=== PATIENT | female | born 1970 | race Caucasian/White ===

== ENCOUNTER → 2023-12-16 06:55 | Outpatient (CLI) | payer OTHER, SELFPAY ==
--- NOTE | 2023-12-16 06:59 | DI.ECHO.S_ITS ---
[place] [facility] : : [id number] : : [place] : : [id number] : : Phone: [phone] Echocardiogram Report + + :Name: SARA XIONG Study Date: 12/16/2023 Height: 65 in : :[facility] ReadingLocation: Weight: 190 lb : : Gender: Female BSA: 1.9 m2 : :: 1970 Age: 53 yrs BP: 146/87 mmHg: :Reason For Study: MURMUR : :Ordering Physician: IDALIA, : :MIKAYLA Jung Performed By: Jhoana Evans : :Referring: MIKAYLA FRIEDMAN : + + Interpretation Summary Normal LV size. The left ventricular ejection fraction is normal. The ejection fraction is estimated to be 60-65%. The left ventricle is normal in size and wall thickness. The right ventricle is normal in size and function. There is mild mitral regurgitation. The IVC is of normal diameter and collapses greater than 50% with a sniff. This suggests a low right atrial pressure of 3 mm Hg. Procedure: A two-dimensional transthoracic echocardiogram with color flow and Doppler was performed. The study quality was technically adequate. There is no prior echocardiogram noted for this patient. The patient was in normal sinus rhythm during the exam. Left Ventricle: The left ventricle is normal in size and wall thickness. A false chord is noted (normal variant). There is no thrombus. The ejection fraction is estimated to be 60-65%. The left ventricular ejection fraction is normal. There are no focal wall motion abnormalities. Diastolic parameters suggest a relaxation abnormality of the left ventricle, consistent with probable normal filling pressures. Right Ventricle: The right ventricle is normal in size and function. Atria: The left atrial size is normal. Right atrial size is normal. There is no Doppler evidence for an interatrial shunt. Mitral Valve: The mitral valve leaflets appear mildly thickened, but open well. The mitral valve leaflets are slightly calcified. There is mild mitral regurgitation. Aortic Valve: The aortic valve is trileaflet. The aortic valve opens well. There is mild aortic valve sclerosis. There is no aortic valve stenosis. No aortic regurgitation is present. Tricuspid Valve: The tricuspid valve is normal in structure and function. There is trace tricuspid regurgitation. Pulmonary artery pressures cannot be estimated because of the lack of a measurable TR jet velocity. Pulmonic Valve: The pulmonic valve is not well seen, but is grossly normal. There is trace pulmonic regurgitation. Great Vessels: The aortic root is normal size. The dimensions of the ascending aorta are normal. The IVC is of normal diameter and collapses greater than 50% with a sniff. This suggests a low right atrial pressure of 3 mm Hg. Pericardium/ Pleura There is no pericardial effusion. There is an anterior echo-free space consistent with a fat pad. There is no pleural effusion. MMode/2D Measurements & Calculations LVIDd: 4.6 cm LVOT diam: 1.9 cm LVIDs: 3.1 cm Ao root diam: 2.9 cm FS: 33.9 % asc Aorta Diam: 3.5 cm EPSS: 0.27 cm Ao Arch Diam (Prox Trans): 2.6 cm IVSd: 0.76 cm LVPWd: 0.63 cm LV huff. diameter/BSA (cm/m^2): 2.4 LV sys. diameter/BSA (cm/m^2): 1.6 LA A2 area: 15.3 cm2 RA long axis: 4.4 cm LA A4 area: 13.5 cm2 RA area: 13.1 cm2 LA length (vol): 4.8 cm RA vol: 33.0 ml LA vol: 36.1 ml RA : 17.1 ml/m2 LA vol index: 18.6 ml/m2 IVC diam: 1.5 cm RVD1 (basal): 3.2 cm RVD2 (mid): 2.5 cm TAPSE: 1.8 cm Doppler Measurements & Calculations Ao V2 max: 176.6 cm/sec LVOT Max Freddy: 119.3 cm/sec Ao V2 mean: 126.7 cm/sec LV V1 max P.7 mmHg Ao max P.5 mmHg LV V1 VTI: 25.5 cm Ao mean P.1 mmHg DERRELL(I,D): 1.8 cm2 Ao V2 VTI: 37.7 cm DERRELL(V,D): 1.8 cm2 sev ratio: 0.68 DERRELL indexed to BSA (cm^2/m^2): 0.94 MV E max freddy: 116.3 cm/sec PA V2 max: 97.8 cm/sec MV A max freddy: 139.5 cm/sec PA V2 mean: 65.9 cm/sec MV E/A: 0.83 PA mean P.0 mmHg Med Peak E' Freddy: 7.3 cm/sec PA pr(Accel): 43.0 mmHg E/E' med: 15.9 Lat Peak E' Freddy: 8.8 cm/sec E/E' lat: 13.2 E/e' average: 14.5 MV dec time: 0.28 sec MVA(VTI): 1.4 cm2 MV V2 mean: 89.4 cm/sec SV(LVOT): 68.8 ml MV mean P.7 mmHg MV V2 VTI: 47.7 cm Reading Physician:11:12 AM
== END ==
LOC: ECHO 06:57
PROVIDERS: PCP Physician Assistant; Referring Provider Internal Medicine Cardiovascular Disease; Visit Provider Internal Medicine Cardiovascular Disease
DX: I08.0 Rheumatic disorders of both mitral and aortic valves (principal); R01.1 Cardiac murmur, unspecified
CPT/HCPCS: 93306